=== PATIENT | male | born 1935 | race Caucasian/White ===

== ENCOUNTER 2016-08-19 15:17 | Emergency (ER) | payer MEDICARE, BC ==
[~2016-08-19] VITALS: Ht 185.4 cm; Wt 72.8 kg
[~2016-08-19 15:17] MED LIST: LANS30CA16 PO
[2016-08-19] MEDS ORDERED: PANT20TA3 PO (16:20)
[2016-08-19 17:33] VITALS: BP 138/69
== END 2016-08-19 18:10 | disposition home or self-care (01) ==
LOC: ED 18:04
DX: H70.001 Acute mastoiditis without complications, right ear (principal); K21.9 Gastro-esophageal reflux disease without esophagitis; Z85.46 Personal history of malignant neoplasm of prostate; Z85.89 Personal history of malignant neoplasm of other organs and systems
CPT/HCPCS: 70480

== ENCOUNTER 2016-09-10 12:13 | Emergency (ER) | payer MEDICARE, BC ==
[~2016-09-10] VITALS: Ht 185.4 cm; Wt 72.0 kg
[~2016-09-10 12:13] MED LIST changes: +PANT20TA3 PO
[2016-09-10 12:16] VITALS: BP 123/73
== END 2016-09-10 12:58 | disposition home or self-care (01) ==
LOC: ED 12:52
DX: H65.92 Unspecified nonsuppurative otitis media, left ear (principal); J30.2 Other seasonal allergic rhinitis; Z85.46 Personal history of malignant neoplasm of prostate
CPT/HCPCS: 99283

== ENCOUNTER 2019-06-26 14:23 | Emergency (ER) | payer MEDICARE, BC ==
[~2019-06-26] VITALS: Ht 185.4 cm; Wt 77.0 kg
[~2019-06-26 14:23] MED LIST changes: -LANS30CA16 PO; +LANS30CA60 PO
[2019-06-26] MEDS ORDERED: DIPH,PERTUSS(ACELL),TET VAC/PF 0.5 ML IM-VACC ONE ×2 (16:00→16:07)
[2019-06-26 16:03] LABS: BASOPHILS # (AUTO) 0.01 x10^3/uL (0-0.1); BASOPHILS % (AUTO) 0 % (0-1); EOSINOPHILS # (AUTO) 0.04 x10^3/uL (0-0.4); EOSINOPHILS % (AUTO) 0 % (1-7); LYMPHOCYTES # (AUTO) 1.16 x10^3/uL (1-3.4); LYMPHOCYTES % (AUTO) 14 % (22-44); MD NO; MEAN CORPUSCULAR HEMOGLOBIN 31.4 pg (27.5-34.5); MEAN CORPUSCULAR HGB CONC 33.1 g/dL (33.2-36.2); MEAN CORPUSCULAR VOLUME 94.9 fL (81-97); MEAN PLATELET VOLUME 8.6 fL (7.4-10.4); MONOCYTES # (AUTO) 0.58 x10^3/uL (0.2-0.8); MONOCYTES % (AUTO) 7 % (2-9); NEUTROPHILS # (AUTO) 6.76 x10^3/uL (1.8-6.8); NEUTROPHILS % (AUTO) 79 % (42-75); PLATELET COUNT 191 x10^3/uL (130-400); RED BLOOD COUNT 4.93 x10^6/uL (4.38-5.82); RED CELL DISTRIBUTION WIDTH 14.2 % (9.4-14.8)
--- NOTE | 2019-06-26 16:06 | NUR ---
PT TO IMAGING AT THIS TIME.
[2019-06-26 16:16] LABS: ALBUMIN 3.3 g/dL (3.4-5.0); ANION GAP 4 mmol/L (5-15); CALCIUM 8.4 mg/dL (8.5-10.1); CHLORIDE 112 mmol/L (98-107); CREATININE 0.99 mg/dL (0.7-1.3)
[2019-06-26] MEDS ORDERED: HYDROmorphone 2 MG/ML, 1ML IVPush PRN (16:30)
[2019-06-26] MEDS ORDERED: SODIUM CHLORIDE FLUSH 10ML SYR IVF ONE (16:30)
[2019-06-26] MEDS ORDERED: morphine SULFATE 10 MG/ML, 1ML IVPush PRN (16:30)
[2019-06-26] MEDS ORDERED: ONDANSETRON 2MG/ML, 2ML IVPush ONE (16:30)
--- NOTE | 2019-06-26 16:31 | NUR ---
PT TO IMAGING AT THIS TIME.
[2019-06-26] MEDS ORDERED: morphine SULFATE 10 MG/ML, 1ML ONE (16:37)
[2019-06-26] MEDS ORDERED: ONDANSETRON 2MG/ML, 2ML ONE (16:38)
[2019-06-26] MEDS ORDERED: NEOSPORIN OINT. PKT 1 PACKET ONE (16:54)
[2019-06-26 19:21] VITALS: BP 151/61
== END 2019-06-26 18:12 | disposition home or self-care (01) ==
LOC: ED 18:11
DX: S00.01XA Abrasion of scalp, initial encounter (principal); S50.811A Abrasion of right forearm, initial encounter; S60.811A Abrasion of right wrist, initial encounter; Z87.430 Personal history of prostatic dysplasia; W01.0XXA Fall on same level from slipping, tripping and stumbling without subsequent striking against object, initial encounter; Y93.01 Activity, walking, marching and hiking; Y92.488 Other paved roadways as the place of occurrence of the external cause; Y99.8 Other external cause status
CPT/HCPCS: 36415; 70450; 71045; 73000; 73030; 80048; 82040; 85025; 90471; 90715; 96374; 96375; 99285; J2270; J2405